=== PATIENT | male | born 1995 | race Caucasian/White ===

== ENCOUNTER → 2019-12-26 | Outpatient (CLI) | payer BC, OTHER ==
--- NOTE | 2019-12-26 16:30 | NEURO WORKBENCH EEG REPORT ---
EEG Report Patient: Alex Barney ID: [id number] Referring Doctor: Moustapha No Date: 12/26/2019 Reason for study: Evaluate Epileptiform activity Medications: Depakote, Zoloft, Albuterol History: This is a 24 year old male with a history of asthma, anxiety, Hypersomnia unspecified, and generalized idiopathic epilepsy. His first seizure was at age 17 and last seizure was in May 2019. This EEG was requested for evaluation of epileptiform activity. EEG Interpretation: This EEG was recorded during wakefulness and very minimal drowsiness. The awake EEG is characterized by a well organized background with a well developed and reactive posterior dominant rhythm (PDR) of approximately 11 Hz. The remainder of the background consisted of low amplitude frontally predominant beta activity. The EEG is symmetric in amplitudes and frequencies. Photic stimulation resulted in photic driving, and there was no epileptiform activity elicited with photic stimulation. There were occasional brief periods of drowsiness characterized by slow rolling eye movements, slowing of the background rhythm. During one episode of drowsiness, there was a single bi-frontally predominant sharply contoured waveform which could be a frontally predominant vertex wave (however other normal sleep architecture was not noted at this time or at other times during the procedure). There was one other sharply contoured waveform during drowsiness in the right frontal-central region (maximal at F4) which was not definitively epileptiform. Stage II sleep was not achieved. There were no seizures. The EKG showed a regular rhythm with typically 48 beats per minute. EEG Impression: This EEG is mildly abnormal for age. There were no seizures. There was no definitive epileptiform activity. However, there were two waveforms noted above during drowsiness which could represent fragmentary generalized epileptiform activity, and one of which could represent a right frontal sharp wave. However, one of these could be a frontally predominant vertex wave (a normal variant of normal sleep architecture) and the other could just be a non-epileptiform sharply contoured waveform. It should be noted as well that the patient is taking Depakote which could potentially suppress interictal epileptiform activity. INTERPRETING NEUROLOGIST: Jim Irene MD Board certified by the [place] [employer] in Neurology, Clinical Neurophysiology, and Sleep Medicine [facility]
== END ==
LOC: NEURO 08:22
PROVIDERS: ATTEND Pediatrics
DX: G40.309 Generalized idiopathic epilepsy and epileptic syndromes, not intractable, without status epilepticus (principal); F41.9 Anxiety disorder, unspecified; G47.10 Hypersomnia, unspecified
CPT/HCPCS: 95819